=== PATIENT | female | born 1990 | race African-American/Black ===

== ENCOUNTER 2017-01-14 22:15 | Emergency (ER) | payer OTHER ==
[~2017-01-14] VITALS: Ht 157.5 cm; Wt 108.9 kg
[~2017-01-14 22:15] MED LIST: IBUPROFEN 800800 MG PO; MACROBID 100 M100 M1 PO; MIRALAX255 GM PO; NOHOMEMEDICATIONS; NORCO 5-325 TA1 EACH PO; NORFLEX100 MG PO; PHENERGAN 25 MG25 M1 PO; VITAFOL-OB+DHA1 EACH PO
[2017-01-14 22:36] VITALS: BP 146/67
[2017-01-14] MEDS ORDERED: PENICILLIN V P500 MG PO (22:44)
[2017-01-14] MEDS ORDERED: OXYCODONE HCL 55 MG PO (22:44)
== END 2017-01-14 23:09 | disposition home or self-care (01) ==
LOC: ER 22:15
DX: K04.7 Periapical abscess without sinus (principal)

== ENCOUNTER 2017-05-08 16:04 | Emergency (ER) | payer OTHER ==
[~2017-05-08] VITALS: Ht 157.5 cm; Wt 95.3 kg
[~2017-05-08 16:04] MED LIST changes: +OXYCODONE HCL 55 MG PO; +PENICILLIN V P500 MG PO
[2017-05-08] MEDS ORDERED: IRON325 M1 PO (16:13)
[2017-05-08] MEDS ORDERED: COLACE100 MG PO ×2 (16:13→17:41)
[2017-05-08 16:30] LABS: URINE BILIRUBIN NEGATIVE (Negative); URINE BLOOD NEGATIVE (Negative); URINE CLARITY CLEAR; URINE COLOR YELLOW; URINE GLUCOSE-RANDOM* NEGATIVE (Negative); URINE KETONES NEGATIVE (Negative); URINE LEUKOCYTES 1+ (Negative); URINE NITRITE NEGATIVE (Negative); URINE PROTEIN (DIPSTICK) NEGATIVE (Negative); URINE SPECIFIC GRAVITY 1.025 (1.005-1.035); URINE UROBILINOGEN 0.2 E.U./dl (0.2-1.0)
[2017-05-08 16:46] LABS: BACTERIA 1-9 Few /HPF (None Seen); CASTS None Seen /LPF (None Seen); CRYSTALS None Seen /LPF (None Seen); SQUAMOUS 4-10 Moderate /LPF (0-3); URINE WBC 6-15 Few /HPF (0-5)
[2017-05-08 16:47] LABS: URINE RBC None Seen /HPF (0-2)
[2017-05-08 16:50] LABS: ABSOLUTE NEUTROPHILS 3.7 thou/uL (1.4-8.2); BASOPHILS 0.5 % (0.0-2.0); EOSINOPHILS 2.4 % (0.0-3.0); HEMATOCRIT 37.6 % (37.0-47.0); HEMOGLOBIN 12.5 gm/dL (12.0-15.0); LYMPHOCYTES 29.3 % (24.0-44.0); MCH 28.7 pg (26.0-34.0); MCHC 33.2 g/dL (28.0-37.0); MCV 86.6 fL (80.0-100.0); MONOCYTES 5.3 % (1.0-8.0); PLATELET COUNT 278 thou/uL (150-400); POLYS 62.5 % (36.0-66.0); RBC 4.34 mil/uL (4.20-5.00); RDW 14.4 % (10.5-14.5); WBC 5.9 thou/uL (4.0-11.0)
[2017-05-08 17:14] LABS: ALBUMIN 3.2 g/dL (3.4-5.0); ANION GAP 9 mmol/L (7-16); BUN 12 mg/dL (7-18); CALCIUM 9.1 mg/dL (8.5-10.1); CHLORIDE 105 mmol/L (98-107); CO2 25 mmol/L (21-32); CREATININE 0.9 mg/dL (0.6-1.0); DIRECT BILIRUBIN < 0.1 mg/dL (<0.1-0.3); GLUCOSE 95 mg/dL (74-106); LIPASE 149 U/L (73-393); POTASSIUM 3.9 mmol/L (3.5-5.1); SGOT 21 U/L (15-37); SGPT 23 U/L (30-65); SODIUM 139 mmol/L (136-145); TOTAL BILIRUBIN 0.3 mg/dL (<0.1-1.0); TOTAL PROTEIN 7.4 g/dL (6.4-8.2)
[2017-05-08] MEDS ORDERED: MIRALAX17 GM PO (17:41)
[2017-05-08] MEDS ORDERED: PROTONIX40 M1 PO (17:41)
[2017-05-08] MEDS ORDERED: GAS RELIEF125 M1 PO (17:41)
== END 2017-05-08 18:05 | disposition home or self-care (01) ==
LOC: ER 16:04
PROVIDERS: Nurse Practitioner
DX: K59.00 Constipation, unspecified (principal); K21.9 Gastro-esophageal reflux disease without esophagitis; N39.0 Urinary tract infection, site not specified; J45.909 Unspecified asthma, uncomplicated

== ENCOUNTER 2018-02-21 10:23 | Emergency (ER) | payer OTHER ==
[~2018-02-21] VITALS: Ht 157.5 cm; Wt 99.8 kg
[~2018-02-21 10:23] MED LIST changes: +COLACE100 MG PO; +GAS RELIEF125 M1 PO; +IRON325 M1 PO; +MIRALAX17 GM PO; +PROTONIX40 M1 PO
[2018-02-21] MEDS ORDERED: VENTOLIN HFA 1818 GM INH (11:16)
[2018-02-21] MEDS ORDERED: PREDNISONE 20 M20 MG PO (11:16)
[2018-02-21] MEDS ORDERED: TESSALON PERLE100 MG PO (11:16)
== END 2018-02-21 11:46 | disposition home or self-care (01) ==
LOC: ER 10:23
DX: J06.9 Acute upper respiratory infection, unspecified (principal); J45.909 Unspecified asthma, uncomplicated

== ENCOUNTER 2018-03-13 17:41 | Emergency (ER) | payer OTHER ==
[~2018-03-13] VITALS: Ht 157.5 cm; Wt 98.9 kg
[~2018-03-13 17:41] MED LIST changes: +PREDNISONE 20 M20 MG PO; +TESSALON PERLE100 MG PO; +VENTOLIN HFA 1818 GM INH
[2018-03-13 17:58] LABS: URINE BILIRUBIN NEGATIVE (Negative); URINE BLOOD TRACE (Negative); URINE CLARITY CLEAR; URINE COLOR YELLOW; URINE GLUCOSE-RANDOM* NEGATIVE (Negative); URINE KETONES NEGATIVE (Negative); URINE LEUKOCYTES-REFLEX NEGATIVE (Negative); URINE NITRITE-REFLEX NEGATIVE (Negative); URINE PROTEIN (DIPSTICK) NEGATIVE (Negative); URINE SPECIFIC GRAVITY >= 1.030 (1.005-1.035); URINE UROBILINOGEN 0.2 E.U./dl (0.2-1.0)
[2018-03-13 18:29] LABS: ABSOLUTE NEUTROPHILS 6.8 thou/uL (1.4-8.2); BASOPHILS 0.5 % (0.0-2.0); HEMATOCRIT 37.8 % (37.0-47.0); HEMOGLOBIN 12.9 gm/dL (12.0-15.0); LYMPHOCYTES 27.9 % (24.0-44.0); MCH 31.3 pg (26.0-34.0); MCHC 34.2 g/dL (28.0-37.0); MCV 91.4 fL (80.0-100.0); MONOCYTES 6.2 % (1.0-8.0); PLATELET COUNT 238 thou/uL (150-400); POLYS 64.4 % (36.0-66.0); RBC 4.13 mil/uL (4.20-5.00); RDW 12.9 % (10.5-14.5); WBC 10.5 thou/uL (4.0-11.0)
[2018-03-13 18:43] LABS: CALCIUM 9.4 mg/dL (8.5-10.1); CREATININE 1.1 mg/dL (0.6-1.0); POTASSIUM 3.6 mmol/L (3.5-5.1)
[2018-03-13 18:47] LABS: TOTAL BILIRUBIN 0.1 mg/dL (<0.1-1.0)
[2018-03-13] MEDS ORDERED: BENTYL 20 MG TA20 M1 PO (20:37)
[2018-03-13] MEDS ORDERED: PHENERGAN 25 MG25 M1 PO (20:37)
[2018-03-13 20:49] VITALS: BP 140/104
== END 2018-03-13 20:55 | disposition home or self-care (01) ==
LOC: ER 17:41
PROVIDERS: Physician Assistant
DX: K80.50 Calculus of bile duct without cholangitis or cholecystitis without obstruction (principal); J45.909 Unspecified asthma, uncomplicated